=== PATIENT | female | born 1985 | race Caucasian/White ===

== ENCOUNTER 2019-09-03 14:17 | Inpatient (IN) ==
[2019-09-03] MEDS ORDERED: NS 1,000 ML IV ONE (14:45)
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
[2019-09-03 14:53] LABS: BASO# 0.01 X1000 (0.0-0.2); BASO% 0.1 % (0.0-0.8); EOS# 0.07 X1000 (0.0-0.7); EOS% 0.9 % (0.0-10.0); IMM GRAN# 0.02 X1000 (0.0-0.04); IMM GRAN% 0.3 % (0.0-0.5); LYMPH# 0.89 X1000 (1.2-3.4); LYMPH% 11.4 % (20.5-51.1); MCH 27.3 PG (27-31); MCHC 33.3 g/dL (33-37); MCV 81.9 FL (81-99); MONO# 0.38 X1000 (0.11-0.59); MONO% 4.9 % (1.7-9.3); MPV 10.1 FL (7.4-10.4); NEUT# 6.41 X1000 (1.4-6.5); NEUT% 82.4 % (42.2-75.2); PLT 237 X1000 (130-400); RBC 4.76 XMIL (4.2-5.4); RDW 15.1 % (11.5-14.5); WBC 7.78 X1000 (4.8-10.8)
[2019-09-03] MEDS ORDERED: ZOFRAN ODT PO ONE (14:59)
[2019-09-03 15:35] LABS: AGAP 14; ALB/GLOB RATIO 1.2; ALBUMIN 4.1 g/dL (3.5-5.0); ALKALINE PHOSPHATASE 398 U/L (32-104); BUN 11 mg/dL (8-22); CHLORIDE 97 mmol/L (98-107); COSMO 266; CREATININE 0.7 mg/dL (0.5-0.9); ESTIMATED GFR > 60; GLUCOSE 97 mg/dL (70-104); GOT 164 U/L (10-30); GPT 166 U/L (10-36); POTASSIUM 4.2 mmol/L (3.5-5.1); SODIUM 133 mmol/L (136-145); TCO2 22 mmol/L (25-35); TOTAL PROTEIN 7.5 g/dL (6.3-8.3)
[2019-09-03 16:04] LABS: URINE SOURCE CLEAN CATCH
[2019-09-03 16:10] LABS: BILIRUBIN URINE NEGATIVE (NEGATIVE); BLOOD URINE MODERATE (NEGATIVE); COLOR YELLOW; GLUCOSE URINE NEGATIVE (NEGATIVE); KETONE URINE NEGATIVE (NEGATIVE); LEUKOCYTES URINE NEGATIVE (NEGATIVE); NITRITE URINE NEGATIVE (NEGATIVE); PROTEIN URINE TRACE mg/dL (NEGATIVE); TURBIDITY URINE HAZY (CLEAR); UROBILINOGEN URINE 2 mg/dL (NORMAL)
[2019-09-03 16:13] LABS: UR EPITHELIAL CELLS >10 /HPF (<10); URINE BACTERIA 1+ /HPF; URINE RBC <10 /HPF (<10); URINE WBC <10 /HPF (<10)
[2019-09-03 16:22] LABS: UR AMPHETAMINES QUAL NONE DETECTED (NONE DETECT); UR BARBITUATES QUAL NONE DETECTED (NONE DETECT); UR BENZODIAZEPIN QUAL NONE DETECTED (NONE DETECT); UR CANNABINOIDS QUAL NONE DETECTED (NONE DETECT); UR COCAINE QUAL PRESUMPTIVE POSITIVE (NONE DETECT); UR METHADONE QUAL NONE DETECTED (NONE DETECT); UR OPIATES QUAL NONE DETECTED (NONE DETECT); UR OXYCODONE QUAL NONE DETECTED (NONE DETECT); UR PCP QUAL NONE DETECTED (NONE DETECT)
--- NOTE | 2019-09-03 16:52 | Diag Imaging Result Doc PS360 ---
CHEST-2 VIEWS - 09/03/2019 INDICATION: fever COMPARISON: 07/24/2019 FINDINGS: The lungs are normally expanded and clear. Heart size and mediastinal contours are normal. No pneumothorax or pleural effusion. IMPRESSION: Negative exam. Electronically signed by Masoud Arias 09/03/2019 4:50 PM
[2019-09-03] MEDS ORDERED: VANCOMYCIN 1 GM/NS 1 GM/250 ML IVPB IV ONE ×2 (16:53→20:00)
[2019-09-03] MEDS ORDERED: TYLENOL PO PRN (17:33)
[2019-09-03] MEDS ORDERED: NORCO-7.5 PO PRN ×2 (17:33→18:33)
--- NOTE | 2019-09-03 17:40 | EKG Report ---
Test Performed on : 09/03/2019 2:39:11 PM Test Reason : fever Blood Pressure : / mmHG Vent. Rate : 101 BPM Atrial Rate : 101 BPM P-R Int : 128 ms QRS Dur : 078 ms QT Int : 358 ms P-R-T Axes : 060 059 060 degrees QTc Int : 464 ms Sinus tachycardia. Otherwise normal ECG When compared with ECG of 24-JUL-2019 18:37, (Unconfirmed) No significant change was found Unconfirmed Result
[2019-09-03] MEDS ORDERED: VANCOMYCIN IV PER PHARMACY MISC SCH (17:45)
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
--- NOTE | 2019-09-03 18:41 | Diag Imaging Result Doc PS360 ---
ABDOMEN FLAT/UPRIGHT - 09/03/2019 INDICATION: vomiting/diarrhea COMPARISON: None FINDINGS: There is a nonobstructive bowel gas pattern. No free air or abdominal calcifications.. There are surgical clips in the right upper quadrant. IMPRESSION: No acute disease. Electronically signed by Masoud Arias 09/03/2019 6:39 PM
[2019-09-03] MEDS: NS 1,000 ML IV SCH (18:47)
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
[2019-09-03] MEDS: PRILOSEC PO SCH (23:53)
[2019-09-03] MEDS: MAXIPIME 1 GM in NS 50 ML IV SCH (23:53)
[2019-09-03] MEDS: MORPHINE IV ONE (23:53)
[2019-09-04 01:39] LABS: HEMOGLOBIN 10.9 g/dL (12.0-16.0)
[2019-09-04] MEDS: MAXIPIME 1 GM in NS 50 ML IV SCH ×2 (02:43→11:28)
[2019-09-04] MEDS: NS 1,000 ML IV ONE ×2 (05:00→06:45)
[2019-09-04 06:02] LABS: BASO# 0.01 X1000 (0.0-0.2); BASO% 0.4 % (0.0-0.8); EOS% 3.5 % (0.0-10.0); HEMATOCRIT 30.5 % (37.0-47.0); HEMOGLOBIN 9.9 g/dL (12.0-16.0); IMM GRAN# 0.02 X1000 (0.0-0.04); IMM GRAN% 0.7 % (0.0-0.5); LYMPH# 0.92 X1000 (1.2-3.4); LYMPH% 32.3 % (20.5-51.1); MCH 27.3 PG (27-31); MCHC 32.5 g/dL (33-37); MONO# 0.29 X1000 (0.11-0.59); MONO% 10.2 % (1.7-9.3); MPV 10.6 FL (7.4-10.4); NEUT# 1.51 X1000 (1.4-6.5); NEUT% 52.9 % (42.2-75.2); PLT 185 X1000 (130-400); RBC 3.63 XMIL (4.2-5.4); RDW 15.3 % (11.5-14.5); WBC 2.85 X1000 (4.8-10.8)
[2019-09-04] MEDS ORDERED: TORADOL IV ONE (06:20)
[2019-09-04 06:32] LABS: AGAP 12; ALB/GLOB RATIO 1.1; ALBUMIN 2.8 g/dL (3.5-5.0); ALKALINE PHOSPHATASE 281 U/L (32-104); BUN 10 mg/dL (8-22); CALCIUM 7.3 mg/dL (8.8-10.2); CHLORIDE 106 mmol/L (98-107); COSMO 273; CREATININE 0.5 mg/dL (0.5-0.9); ESTIMATED GFR > 60; GLUCOSE 101 mg/dL (70-104); GOT 86 U/L (10-30); GPT 103 U/L (10-36); MAGNESIUM 1.7 mg/dL (1.5-2.7); POTASSIUM 3.5 mmol/L (3.5-5.1); SODIUM 137 mmol/L (136-145); TCO2 19 mmol/L (25-35); TOTAL BILIRUBIN 0.29 mg/dL (0.20-1.00); TOTAL PROTEIN 5.3 g/dL (6.3-8.3)
[2019-09-04 06:37] LABS: INR 0.97; PROTIME 12.9 Seconds (11.0-16.0)
[2019-09-04] MEDS ORDERED: NS 1,000 ML IV ONE (07:27)
[2019-09-04] MEDS: MORPHINE IV ONE (07:37)
--- NOTE | 2019-09-04 07:42 | EKG Report ---
Test Performed on : 09/04/2019 05:52:19 AM Test Reason : Chest pain Blood Pressure : / mmHG Vent. Rate : 083 BPM Atrial Rate : 083 BPM P-R Int : 170 ms QRS Dur : 080 ms QT Int : 410 ms P-R-T Axes : 058 066 048 degrees QTc Int : 481 ms Normal sinus rhythm. Possible Anterior infarct , age undetermined Abnormal ECG When compared with ECG of 04-SEP-2019 04:35, (Unconfirmed) No significant change was found Confirmed by Adi WHITE, Fernando ([id number]) on 09/05/2019 10:34:16 AM
[2019-09-04] MEDS: NS 1,000 ML IV SCH ×3 (07:51→20:34)
[2019-09-04] MEDS ORDERED: LEVOPHED 8 MG in D5 1/2 NS 250 ML IV SCH (08:15)
[2019-09-04] MEDS: PRILOSEC PO SCH ×2 (08:24→20:33)
[2019-09-04] MEDS: ZOFRAN IV PRN ×2 (08:59→21:53)
[2019-09-04] MEDS ORDERED: LOVENOX SUBQ SCH (09:00)
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
[2019-09-04] MEDS: NICODERM PATCH TD SCH (11:28)
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
[2019-09-04] MEDS: TORADOL IV PRN ×2 (13:20→18:22)
--- NOTE | 2019-09-04 13:29 | ECHO REPORT ---
ORDER DATE: 09/03/2019 ECHOCARDIOGRAPHIC MEASUREMENTS: 1. Septal thickness 1.0. 2. Left ventricular internal diameter in diastole 4.2. 3. Posterior wall thickness 0.7. 4. Left ventricular internal diameter in systole 2.7. 5. Aortic root 2.9. 6. Left atrium 3.3. SUMMARY: 1. Adequate quality study. 2. Aortic valve is trileaflet and opens normally on 2-dimensional images. The peak gradient across the aortic valve is less than 5 mmHg. Mitral, tricuspid and pulmonic valves are without evidence of structural abnormality with trace mitral regurgitation and mild tricuspid regurgitation. The estimated systolic PA pressure by Doppler is 35 mmHg. The aortic root is normal in size. 3. Normal left ventricular dimensions demonstrated. Estimated left ventricular ejection fraction appears to be at least 65%. No regional wall motion abnormalities are evident. Left atrium, right atrium, right ventricle are normal in size with grossly preserved right ventricular systolic function. 4. No pericardial effusion. 5. Appearance of inferior vena cava suggests normal central venous pressure. cc: MD Flor Arce CRNP
[2019-09-04] MEDS: VANCOMYCIN 1,500 MG in NS 250 ML IV SCH (13:30)
--- NOTE | 2019-09-04 16:36 | ECHO REPORT ---
ORDER DATE: 09/04/2019 REASON FOR STUDY: Endocarditis. MEASUREMENTS: Limited Echocardiogram 1. Normal left ventricular cavity size and function. Estimated ejection fraction of 65%. Mitral valve was normal. 2. Aortic valve leaflets were trileaflet. 3. Pulmonic valve was normal. 4. Tricuspid valve was normal. 5. There is no pericardial effusion or obvious intracardiac mass or thrombus. cc: Raymundo Ramos MD [facility]
[2019-09-04] MEDS: SODIUM CHLORIDE 0.9% INJ PRN (17:55)
[2019-09-04] MEDS: PHENERGAN IV PRN (17:55)
[2019-09-05] MEDS: TORADOL IV PRN ×4 (00:18→22:42)
[2019-09-05] MEDS: MAXIPIME 1 GM in NS 50 ML IV SCH (01:31)
[2019-09-05] MEDS: SODIUM CHLORIDE 0.9% INJ PRN ×2 (03:16→12:24)
[2019-09-05] MEDS: PHENERGAN IV PRN ×3 (03:16→22:50)
[2019-09-05 03:53] LABS: BASO# 0.02 X1000 (0.0-0.2); BASO% 0.6 % (0.0-0.8); EOS# 0.26 X1000 (0.0-0.7); EOS% 7.7 % (0.0-10.0); HEMATOCRIT 31.4 % (37.0-47.0); LYMPH# 1.01 X1000 (1.2-3.4); LYMPH% 30.1 % (20.5-51.1); MCHC 31.8 g/dL (33-37); MCV 84.9 FL (81-99); MONO# 0.35 X1000 (0.11-0.59); MONO% 10.4 % (1.7-9.3); MPV 10.6 FL (7.4-10.4); NEUT# 1.72 X1000 (1.4-6.5); NEUT% 51.2 % (42.2-75.2); PLT 159 X1000 (130-400); RDW 15.3 % (11.5-14.5); WBC 3.36 X1000 (4.8-10.8)
[2019-09-05 04:18] LABS: AGAP 10; ALB/GLOB RATIO 1.2; ALKALINE PHOSPHATASE 350 U/L (32-104); BUN 8 mg/dL (8-22); CALCIUM 7.5 mg/dL (8.8-10.2); CHLORIDE 111 mmol/L (98-107); COSMO 281; CREATININE 0.5 mg/dL (0.5-0.9); ESTIMATED GFR > 60; GLUCOSE 116 mg/dL (70-104); GOT 119 U/L (10-30); GPT 119 U/L (10-36); POTASSIUM 3.9 mmol/L (3.5-5.1); SODIUM 141 mmol/L (136-145); TCO2 20 mmol/L (25-35); TOTAL BILIRUBIN 0.18 mg/dL (0.20-1.00); TOTAL PROTEIN 5.6 g/dL (6.3-8.3)
[2019-09-05] MEDS: NS 1,000 ML IV SCH ×2 (06:26→15:15)
[2019-09-05] MEDS: PRILOSEC PO SCH ×3 (07:59→21:12)
[2019-09-05] MEDS: VANCOMYCIN 1,500 MG in NS 250 ML IV SCH (07:59)
[2019-09-05] MEDS: NICODERM PATCH TD SCH (07:59)
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
[2019-09-05 08:36] LABS: HEPATITIS PROFILE ACUTE SEE COMMENTS
[2019-09-05] MEDS ORDERED: DIPRIVAN 1% ONE ×2 (12:06→12:07)
[2019-09-05] MEDS ORDERED: ROBINUL ONE (12:06)
[2019-09-05] MEDS ORDERED: XYLOCAINE-MPF 2% ONE (12:06)
[2019-09-05] MEDS ORDERED: VERSED ONE (12:06)
[2019-09-05] MEDS ORDERED: XYLOCAINE 2% VISCOUS ONE (12:25)
[2019-09-05] MEDS ORDERED: SODIUM CHLORIDE 0.9% 10 ML ONE (12:25)
--- NOTE | 2019-09-05 13:33 | ECHO REPORT ---
ORDER DATE: 09/05/2019 PROCEDURE: Transesophageal echocardiogram to evaluate for endocarditis. DESCRIPTION OF PROCEDURE: The patient was brought to the cardiac catheterization laboratory. Oropharynx was anesthetized using Cetacaine spray. A transesophageal probe was easily passed into the esophagus. The patient also received propofol. Please see detailed anesthesia records. There were no complications. FINDINGS: 1. Normal left ventricular cavity size. Estimated ejection fraction of 65%. 2. Left atrium was normal. Left atrial appendage was normal. 3. Mitral valve was normal. 4. Aortic valve leaflets are trileaflet. 5. Pulmonic valve was normal. 6. There was a linear structure noted at the tricuspid valve, which measures about 1 cm in length. 7. There is moderate tricuspid regurgitation. 8. There is mild mitral regurgitation. 9. There is no aortic stenosis or regurgitation. 10. Ascending aorta was normal. Descending aorta was normal. CONCLUSIONS: Linear fibrinous structure noted at the anterior tricuspid valve, measuring up to 1 cm. This could represent a healed vegetation. There is associated moderate tricuspid regurgitation. There is no abscess. Would recommend clinical correlation. cc: Raymundo Ramos MD [facility]
[2019-09-06] MEDS: NS 1,000 ML IV SCH (01:09)
[2019-09-06] MEDS: VANCOMYCIN 1,500 MG in NS 250 ML IV SCH (02:47)
[2019-09-06 05:47] LABS: BASO# 0.01 X1000 (0.0-0.2); BASO% 0.3 % (0.0-0.8); EOS# 0.22 X1000 (0.0-0.7); EOS% 7.6 % (0.0-10.0); HEMATOCRIT 29.2 % (37.0-47.0); HEMOGLOBIN 9.3 g/dL (12.0-16.0); LYMPH# 1.08 X1000 (1.2-3.4); LYMPH% 37.4 % (20.5-51.1); MCHC 31.8 g/dL (33-37); MCV 84.6 FL (81-99); MONO# 0.34 X1000 (0.11-0.59); MONO% 11.8 % (1.7-9.3); MPV 10.7 FL (7.4-10.4); NEUT# 1.24 X1000 (1.4-6.5); NEUT% 42.9 % (42.2-75.2); PLT 153 X1000 (130-400); RBC 3.45 XMIL (4.2-5.4); RDW 15.2 % (11.5-14.5); WBC 2.89 X1000 (4.8-10.8)
[2019-09-06 06:07] LABS: AGAP 10; ALB/GLOB RATIO 1.1; ALBUMIN 2.7 g/dL (3.5-5.0); ALKALINE PHOSPHATASE 401 U/L (32-104); BUN 6 mg/dL (8-22); CALCIUM 7.5 mg/dL (8.8-10.2); CHLORIDE 109 mmol/L (98-107); COSMO 276; CREATININE 0.4 mg/dL (0.5-0.9); ESTIMATED GFR > 60; GLUCOSE 107 mg/dL (70-104); GOT 88 U/L (10-30); GPT 107 U/L (10-36); MAGNESIUM 1.9 mg/dL (1.5-2.7); POTASSIUM 3.7 mmol/L (3.5-5.1); SODIUM 139 mmol/L (136-145); TCO2 20 mmol/L (25-35); TOTAL BILIRUBIN 0.17 mg/dL (0.20-1.00); TOTAL PROTEIN 5.1 g/dL (6.3-8.3)
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
[2019-09-06] MEDS: D5 1/2 NS 1,000 ML IV SCH (09:00)
[2019-09-06] MEDS: PRILOSEC PO SCH ×2 (09:40→21:04)
[2019-09-06] MEDS: TORADOL IV PRN ×2 (09:44→19:14)
[2019-09-06] MEDS: NICODERM PATCH TD SCH (09:44)
--- NOTE | 2019-09-06 10:09 | INFECTIOUS DISEASE PROGRESS NO ---
DATE: 09/06/2019 PRESENT ILLNESS: The patient has infection in both of her arms causing a cellulitis. The culture in the right arm is growing group B strep and in the left arm there is a group B strep plus another strep which has not been identified at this time. MEDICATIONS: Currently the patient is on vancomycin. PHYSICAL EXAMINATION: Vital Signs: Temperature is 98.4 degrees, pulse 72, respirations 19, blood pressure 105/72. General: This is a somewhat ill-appearing young female. She is in no acute distress. Head/eyes/ears/nose/throat: She can hear my spoken words and see near objects. She does not have any white coating on her tongue. Neck: No meningismus. Lungs: Clear to auscultation. Cardiovascular: Heart rate is regular. Abdomen: Soft and nontender. Extremities: Both arms are erythematous but they have improved. Neurologic: The patient is awake. She can move her extremities. There is no tremor. LAB AND X-RAY: There is no new radiographic study. CBC shows a white count of 2890, hemoglobin 9.3, and platelet count 153,000. Creatinine 0.4, GFR is greater than 60, alkaline phosphatase is 401. Culture from the right arm grew group B strep. From the left arm there is a group B strep plus another strep present. Urine culture is negative. Blood cultures are negative. ASSESSMENT AND PLAN: The patient has bilateral arm cellulitis with streptococci. I am switching the patient to Pen-VK 500 mg p.o. every 8 hours. I suggest that the patient stay on Pen-VK for 10 days. I am signing off on the patient's case but I am available to see her on a p.r.n. basis. COMORBIDITY: The patient is a drug addict. cc: Willi Loja MD
[2019-09-06 10:33] LABS: HCV BY PCR SEE COMMENTS
[2019-09-06] MEDS: PHENERGAN IV PRN (13:10)
[2019-09-06] MEDS: PEN VK PO SCH ×2 (15:36→22:17)
--- NOTE | 2019-09-06 15:43 | Diag Imaging Result Doc PS360 ---
US ABDOMEN-COMPLETE - 09/06/2019 INDICATION: Elevated LFTs COMPARISON: None FINDINGS: The gallbladder is surgically absent. Common bile duct measures 4 mm. The pancreas is obscured. The liver is mildly fatty. No biliary dilation or liver masses. The right kidney is normal. Aorta, IVC, and main portal vein are patent. IMPRESSION: Mild fatty liver. Electronically signed by Masoud Arias 09/06/2019 3:40 PM
[2019-09-06] MEDS ORDERED: MELATONIN PO ONE (22:23)
[2019-09-06] MEDS: ZOFRAN IV PRN (22:41)
--- NOTE | 2019-09-06 23:41 | GASTROENTEROLOGY CONSULTATION ---
DATE: 08/27/2019 REASON FOR CONSULTATION: New diagnosis of hepatitis C. HISTORY OF PRESENT ILLNESS: Ms Effie Wilcox is a 33-year-old woman with past medical history of MRSA, endocarditis and IV drug abuse who presents with nausea, vomiting, fever and diarrhea. The patient is currently being treated for septic shock requiring pressors in the setting of gram- positive cocci bacteremia and cellulitis. The patient was found to have abnormal LFTs with AST and ALT in the 100s, with normal total bilirubin, alkaline phosphatase that is in the 300s to 400s. The patient reports using IV drug use up until about a year ago, year and a half ago, and recent cocaine use in the last couple months. She drinks alcohol socially a few times a month. She is a nonsmoker. She denies any family history of liver disease. No prior treatment for hepatitis C. Abdominal ultrasound showed fatty liver. PAST MEDICAL HISTORY: MRSA endocarditis, substance abuse. PAST SURGICAL HISTORY: Cholecystectomy, PICC line placement and skin graft. SOCIAL HISTORY: She does smoke cigarettes, about half a pack a day which she did for a couple years. She drinks 1 to 2 shots of vodka 2 to 3 times a week. Cocaine abuse as above. FAMILY HISTORY: No family history of GI malignancies. ALLERGIES: Naproxen causes her skin to peel. HOME MEDICATIONS: Bactrim. REVIEW OF SYSTEMS: She denies any abdominal pain, history of jaundice, ascites, lower extremity edema. The rest of review of systems is negative. PHYSICAL EXAMINATION: Vital Signs: Temperature 99.7 degrees, heart rate 96, respiratory rate 25, blood pressure 143/68, O2 saturation 95% on room air. General: The patient is awake, alert, oriented, in no acute distress. HEENT: Sclerae anicteric. Moist mucous membranes. Extraocular motor intact. Neck: Supple. No JVD or lymphadenopathy. Cardiac: Regular rate and rhythm. No murmurs, rubs, or gallops. Lungs: Clear to auscultation. No rales, rhonchi, or crackles. Abdomen: Soft, nontender, nondistended. Normoactive bowel sounds. Extremities: No clubbing, cyanosis, or edema. Neurologic: Nonfocal. LABS: White count of 2.8, hemoglobin 9.3, MCV of 84.6, platelets of 153,000. INR on admission was 0.97. Sodium 139, potassium 3.7, chloride of 109, bicarb 20, BUN of 6, creatinine 0.4. Glucose 107, total bilirubin 0.17, AST 88, ALT of 107, alkaline phosphatase of 401, total protein of 5.1, albumin 2.7. Hepatitis panel positive, hepatitis C antibody HCV RNA is 342. Urine toxicology positive for cocaine on the 09/03/2019. Cultures: Blood cultures x2 no growth. Wound culture shows Streptococcus agalactiae, could be strep. Left arm gram-positive cocci. Urine culture negative. Influenza swab negative. TTE shows linear structure noted to the anterior tricuspid valve measuring up to 1 cm, this could represent a healed vegetation. There is associated mild tricuspid regurgitation. There is no absence. ASSESSMENT AND PLAN: Ms. Effie Wilcox is a 33-year-old woman who presents to the GI service with abnormal LFTs in the setting of likely chronic hepatitis C with low viral load. The patient is hemodynamically stable. She is currently still using drugs, including cocaine and drinks alcohol frequently, per report. I advised patient to avoid alcohol and counseled on drug abuse cessation. She will be a candidate for hepatitis C treatment, which we can initiate workup with this as an outpatient. Ultrasound shows a fatty liver, but no signs of portal hypertension or cirrhosis. At this time, no further treatment of her hepatitis C will be recommended at this time. Recommend follow up with GI in 4 to 6 weeks upon discharge. Anemia noted, recommend iron studies, B12 and folate. No overt bleeding. This can be addressed as an outpatient as well. # Hepatitis C # Abnormal LFTs # Septic shock # Substance abuse # Endocarditis # Cellulitis # Alcoholism # Fatty liver # Anemia We will sign off. Please call us with any questions or concerns. [facility] MEDICAL CENTERLashaun
[2019-09-07] MEDS: D5 1/2 NS 1,000 ML IV SCH (04:45)
[2019-09-07] MEDS: PEN VK PO SCH (06:01)
[2019-09-07 06:02] LABS: BASO# 0.03 X1000 (0.0-0.2); BASO% 0.7 % (0.0-0.8); EOS% 4.9 % (0.0-10.0); HEMATOCRIT 30.4 % (37.0-47.0); HEMOGLOBIN 9.8 g/dL (12.0-16.0); LYMPH# 1.29 X1000 (1.2-3.4); LYMPH% 31.3 % (20.5-51.1); MCHC 32.2 g/dL (33-37); MCV 83.7 FL (81-99); MONO# 0.53 X1000 (0.11-0.59); MONO% 12.9 % (1.7-9.3); MPV 10.5 FL (7.4-10.4); NEUT# 2.07 X1000 (1.4-6.5); NEUT% 50.2 % (42.2-75.2); PLT 175 X1000 (130-400); RBC 3.63 XMIL (4.2-5.4); RDW 14.7 % (11.5-14.5); WBC 4.12 X1000 (4.8-10.8)
[2019-09-07 06:14] LABS: AGAP 10; ALB/GLOB RATIO 1.2; ALBUMIN 2.9 g/dL (3.5-5.0); ALKALINE PHOSPHATASE 408 U/L (32-104); BUN 9 mg/dL (8-22); CALCIUM 7.7 mg/dL (8.8-10.2); CHLORIDE 106 mmol/L (98-107); COSMO 278; CREATININE 0.4 mg/dL (0.5-0.9); ESTIMATED GFR > 60; GLUCOSE 99 mg/dL (70-104); GOT 70 U/L (10-30); GPT 102 U/L (10-36); MAGNESIUM 1.7 mg/dL (1.5-2.7); POTASSIUM 3.8 mmol/L (3.5-5.1); SODIUM 140 mmol/L (136-145); TCO2 24 mmol/L (25-35); TOTAL BILIRUBIN 0.28 mg/dL (0.20-1.00); TOTAL PROTEIN 5.4 g/dL (6.3-8.3)
[2019-09-07] MEDS: TORADOL IV PRN (07:39)
[2019-09-07] MEDS: PRILOSEC PO SCH (09:25)
[2019-09-07] MEDS: NICODERM PATCH TD SCH (09:25)
[2019-09-07 10:19] VITALS: BP 91/50
[2019-09-07] MEDS ORDERED: PNEUMOVAX 23 IM ONE (10:45)
--- NOTE | 2019-09-08 16:09 | DISCHARGE SUMMARY ---
ADMISSION DATE: 09/03/2019 DISCHARGE DATE: 09/07/2019 DIAGNOSES: 1. Septic shock, resolved. 2. Recent endocarditis with a history of methicillin-resistant Staphylococcus aureus. ALFIE revealed linear fibrinous structure noted at the anterior tricuspid valve measuring up to 1 cm, which could represent a healed vegetation. There is no abscess. 3. Right and left forearm wound with cellulitis with group B strep in the left arm and group B strep plus another strep in the left arm. 4. Tobacco abuse. 5. Possible hemophilia. 6. Elevated liver function tests, positive for hepatitis C. CONSULTANTS: 1. Dr. Ketan Mtz, gastroenterology. 2. Cardiology, Dr. Ramos. 3. Infectious disease, Dr. Willi Loja. DIAGNOSTICS: 1. Chest x-ray revealed negative exam. 2. Echocardiogram revealed ejection fraction of 65% with no regional wall motion abnormalities evident. 3. ALFIE revealed linear fibrinous structure at the anterior tricuspid valve measuring 1 cm that could represent a healed vegetation. 4. Abdominal ultrasound revealed mild fatty liver. MICROBIOLOGY: 1. Blood cultures x2 revealed no growth after 48 hours. 2. Influenza screen is negative for A and B. 3. Urine culture revealed no growth. 4. Right arm wound culture revealed group B strep. 5. Left arm culture revealed Staphylococcus hemolyticus and Streptococcus dysgalactiae. HOSPITAL COURSE: Ms. Wilcox presented to the emergency room with fever, nausea, vomiting, and diarrhea. She was found to have bilateral forearm cellulitis having recent endocarditis. Echocardiogram and ALFIE were performed, and the ALFIE did reveal a 1 cm structure at the anterior tricuspid valve which could represent a healed vegetation. She was followed with antibiotic coverage per Dr. Willi Loja, infectious disease. With culture stated above, she received cefepime and vancomycin IV antibiotics, and she will be discharged on Pen-VK 500 mg every 8 hours for 10 days. She was noted to have abnormal LFTs. Hepatitis panel was performed which revealed hepatitis C, and she will follow up with Dr. Mtz in 4 to 6 weeks for further evaluation and treatment. Thankfully, the cellulitis to bilateral arms is healing well. We did discuss with the patient regarding tobacco, drug, and alcohol cessation. This was discussed daily with the patient. DISCHARGE EXAM: Vital Signs: Blood pressure is 112/69 with a heart rate of 68. Respirations are 20. Temperature is 98.4 degrees with room air saturations 96 to 98%. Cardiovascular: Regular rate and rhythm. S1 and S2 appreciated. She has no murmur. Pulmonary: Breath sounds are clear with no increased work of breathing noted. Chest rises and falls symmetric with respiration. Gastrointestinal: Abdomen is soft, nontender, nondistended with bowel sounds in all 4 quadrants. Neurologic: She is alert and oriented x3. DISCHARGE MEDICATIONS: 1. Pen-VK 500 mg p.o. q.8 hours x10 days. 2. Prilosec 40 mg p.o. daily FOLLOWUP: 1. Dr. Ramos. [facility] appointment [facility] [address] Mtz. She is to call the office to schedule appointment in 4 to 6 weeks. She has been instructed to call to be seen sooner or return to the emergency room for any syncope, dizziness, chest pain, palpitations, temperature greater than 101, any shortness of breath, PND, orthopnea, any nausea, vomiting, diarrhea, constipation, black or bloody vomitus or stools, any hematuria, dysuria, frequency, urgency, or for any questions or concerns that she may have. She is being discharged home in stable condition with family members. TIME SPENT: This is a greater than 30 minute discharge. Dictated by NIKKI Arellano for Zak Salazar MD cc: NIKKI Arellano MD
== END 2019-09-07 11:07 | disposition home or self-care (01) ==
LOC: ED 14:17 → 2N 20:22 → ICU 09-04 09:22
PROVIDERS: ATTEND Internal Medicine